=== PATIENT | female | born 1955 | race Caucasian/White ===

== ENCOUNTER → 2019-08-25 | Outpatient (CLI) | payer MEDICARE, OTHER ==
[~2019-08-25] MED LIST: GADOTERATE 7.5 MMOL/15ML VIAL. IVP ONE
--- NOTE | 2019-08-25 17:04 | KCIC ---
MRI Brain with and without contrast History:Arachnoid cyst Technique: Multiplanar, multi sequential pre and postcontrast MR imaging was performed of the brain. Comparison: Neck CT August 13, 2019 Findings: There is no evidence of recent infarct or cytotoxic edema. The ventricles, sulci, and cisterns are within normal limits in size and configuration. Corresponding with the CT findings, there is a nonenhancing extra-axial cyst of the anterior aspect of the left middle cranial fossa about 3.9 cm transverse by about 3.3 cm AP by about 3 cm cc. There is no significant signal abnormality of the brain parenchyma. There is no nodular parenchymal or leptomeningeal enhancement. There is a 0.3 cm blush of enhancement of the posterior left temporal lobe best seen coronal image 10 series 11 not associated with other signal change or mass effect. There is preservation of the major intracranial flow-voids at the skull base. The cerebellar tonsils are normal in location. There is no significant abnormality of the pineal gland or pituitary gland. There is patchy [id number] bilateral ethmoid air cell mucosal thickening, very minimally of the frontal sinus. The mastoid air cells are aerated. There is nonspecific mild heterogeneity of the marrow of the nonexpanded clivus. Impression: 1. As seen on CT, there is arachnoid cyst of the anterior aspect of the left middle cranial fossa. 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 There is no nodular intracranial enhancement or other significant intracranial abnormality. Electronically signed by: Aguilar Calle MD (08/25/2019 5:02 PM) [id number]
== END ==
LOC: KCIC MRI 15:15
PROVIDERS: ATTEND Otolaryngology
DX: G93.0 Cerebral cysts (principal)
CPT/HCPCS: 70553; A9575

== ENCOUNTER → 2019-09-19 | Outpatient (CLI) | payer MEDICARE, OTHER ==
--- NOTE | 2019-09-19 10:08 | RAD ---
EXAM: ULTRASOUND-GUIDED THYROID FINE-NEEDLE ASPIRATION. HISTORY: Thyroid nodule. Ultrasound-guided biopsy is requested. FINDINGS: The procedure along with its risks and benefits were explained to the patient. They agreed to proceed. A timeout procedure was performed. Sonographic images of the thyroid gland were obtained. The solid target nodule in the left thyroid lobe was adequately visualized for biopsy. The overlying skin was sterilely prepped and infiltrated with 1% lidocaine for local anesthesia. Under ultrasound guidance, 4 aspirates were obtained using 25-gauge needles. These were hand delivered to pathology who determined them adequate for diagnosis. A sterile dressing was placed. There were no immediate complications. IMPRESSION: 1. Successful ultrasound-guided fine-needle aspiration of the left thyroid nodule. Electronically signed by: David Chavez MD (09/19/2019 10:05 AM) [id number]
--- NOTE | 2019-09-23 11:07 | PATHOLOGY ---
Note [facility] Accession Number: [id number] TESTS RESULT FLAG UNITS REF RANGE LAB Clinician Provided Cytology Information No. of containers..01 Other (Miscellaneous) Source: LEFT THYROID NODULE DIAGNOSIS: LEFT THYROID NODULE NEGATIVE FOR MALIGNANT CELLS. BETHESDA CATEGORY II. SPECIMEN CONSISTS OF BENIGN FOLLICULAR CELLS, HEMOSIDERIN-LADEN MACROPHAGES, COLLOID, AND BLOOD. THIS PATTERN IS CONSISTENT WITH A BENIGN FOLLICULAR NODULE. COLLOID IS PRESENT. THIS INTERPRETATION INCLUDES EVALUATION OF A CELL BLOCK. Pathologist ICD10: 02 E04.1 Signed out by: 02 Michael Stovall MD, Pathologist NPI- [id number] Performed by: Amara Nj, Prosthetic Assistant ([facility]) Gross description: 01 30ML, CLEAR PINK, 2F 2A 2HE /LCS 09/19/2019 1707 Local FLAG LEGEND: L-Low Normal,H-High Normal,LL-Alert Low,HH-Alert High <-Panic Low,>-Panic High,A-Abnormal,AA-Critical Abnormal Performed at: [facility] [address] [place] [address] Michael Oliver MD, 02 CRISTIAN [facility] [address] [address] Michael Stovall MD, Specimen Comment: A courtesy copy of this report has been sent to [phone] Specimen Comment: [id number] Specimen Comment: Report sent to Performed at: [address], [place], [place] [id number] MD Michael Oliver MD Phone: [phone]
== END | disposition home or self-care (01) ==
LOC: US 09:23
PROVIDERS: ATTEND Otolaryngology
DX: E04.1 Nontoxic single thyroid nodule (principal)
CPT/HCPCS: 10005; 60300; 76942